=== PATIENT | male | born 1950 ===

== ENCOUNTER → 2018-01-14 06:55 | Day surgery (SDC) | payer BC ==
[~2018-01-14 06:55] MED LIST: Acetaminophen TAB* 325 MG PO PRN; Buffered Lidocaine 0.9% SYRIN* 5 ML/SYR SYRINGE INTRADERM ONE; Buffered Lidocaine 0.9% SYRIN* 5 ML/SYR SYRINGE ONE; Bupivacaine 0.5%* 50 ML VIAL ONE; Dexamethasone IV* 4 MG/ML 1 ML (4 MG) ONE; DiMENhydriNATE IV* 50 MG/ML VIAL IV PUSH PRN; EPHEDrine (Pressors)* 50 MG/ML VIAL ONE; Famotidine IV* 10 MG/ML 2 ML (20 mg) ONE; Ketorolac INJ* 30 MG/ML 1 ML VIAL ONE; Levalbuterol 0.63MG/3ML NEB* UNIT OF USE INH PRN; Lidocain 1% EPI 1:100,000 * 30 ML MDV ONE; Lidocaine 2% PF * 5 ML VIAL ONE; Midazolam* 1 MG/ML 2 ML VIAL (2 MG) ONE; Naloxone* 0.4 MG/ML 1 ML VIAL IV PRN; Ondansetron INJ* 2 MG/ML VIAL IV PRN; PROCHLORPERAZINE INJ 5 MG/ML 2 ML VIAL IV PRN; Propofol* 10 MG/ML 20 ML BTL IV PUSH ONE; ceFAZolin 2 GM PREMIX (*) 2 GM/50 ML BAG IVPB ONE; fentaNYL* 50 MCG/ML 2 ML VIAL (100 MCG VIAL) IV PRN; fentaNYL* 50 MCG/ML 2 ML VIAL (100 MCG VIAL) ONE
[2018-01-14 13:02] VITALS: BP 136/73
--- NOTE | 2018-01-15 02:06 | OP ---
CC: Dr. Granados, at [facility] * DATE OF OPERATION: 01/14/18 - [facility] DATE OF : 46 SURGEON: Antonio Whittaker MD. BOTANY LABORATORY ASSISTANT: Laura Taylor NP. ANESTHESIOLOGIST: Malachi Ramey MD. ANESTHESIA: Local with general. PRE-OP DIAGNOSES: 1. Umbilical hernia. 2. Right inguinal hernia. POST-OP DIAGNOSIS: 1. Umbilical hernia. 2. Right indirect inguinal hernia. PROCEDURE: 1. Open primary repair of umbilical hernia. 2. Open repair of right indirect inguinal hernia with mesh. WOUND CLASSIFICATION: 1. SPECIMENS: None. DRAINS: None. COMPLICATIONS: None FINDINGS: The patient had a rather small fat-containing umbilical hernia, which was closed primarily. Also noted with a large indirect inguinal hernia, which was repaired using mesh. DESCRIPTION OF PROCEDURE: Written and informed consent was obtained. The umbilicus and the right groin were marked with indelible ink and preoperative antibiotics were administered. The patient was taken to the operating room and placed in a supine position. Sequential compression device and a warming blanket were applied. General anesthesia was administered. The abdomen and right groin were prepped and draped in usual sterile fashion. Time-out verification was completed for both procedures. Initially 0.25% Marcaine mixed with 1% lidocaine was infiltrated extensively around the umbilicus. A semicircular incision was then made inferior to the umbilicus and carried down through the subcutaneous tissue to the fascia just below the umbilical stalk. I encircled the umbilical stalk subcutaneously with a 1/4-inch [place] drain. The overlying skin was excised off of what appeared to be protuberant fat that was herniating up through the fascial defect. It was only about 8 mm to 1 cm in size. The surrounding fascia appeared to be intact and healthy. The preperitoneal fat was then reduced without difficulty. It did not enter the peritoneal cavity. Once this was complete, it was apparent that this was quite a small hernia and an attempt to place mesh would be difficult as well because of its small size. I proceeded with a primary repair using three separate 0-Vicryl sutures placed in transverse orientation to repair the defect. Hemostasis was then assured. Additional Marcaine was infiltrated. The umbilical skin was tacked down to the suture line with an interrupted 3-0 Polysorb suture. The incision was then closed in layers with 3-0 Vicryl and 4-0 subcuticular Vicryl. Steri-Strips and sterile dressings were applied. Next, a repeat time-out was performed. Time-out was repeated for the right groin hernia repair. The 0.25% Marcaine with 1% lidocaine was infiltrated several fingerbreadths above the groin crease. An oblique incision was made, carried down through Yeny's fascia. The external oblique aponeurosis was identified as well as the external ring. The fascia was opened in the direction of its fibers to expose a rather large inguinal hernia extending down through the external ring. I was able to encircle the spermatic cord and its contents with a 1/4 inch Sofia drain at the pubic tubercle. It was after freeing up the cord from the underlying floor that the direct space appeared to be intact. There was no evidence of direct hernia. With some tedious dissection due to significant amount of scar tissue along the cord, we were able to identify a rather large indirect inguinal hernia sac that was quite scarred and adherent to the spermatic cord, but with careful dissection we were able to dissect this up into the neck at the internal ring, with care to protect injury to the spermatic cord including the vas deferens, which was obviously identified. As mentioned, the direct space appeared to be intact. Once the hernia had been reduced, a Covidien precut ProGrip mesh was then placed , sutured to the pubic tubercle medially with 0 Polysorb suture. I sutured in several positions to the conjoint tendons superiorly, as well as to the inguinal ligament inferiorly, but it covered the direct and indirect space nicely without tension and reconstructed the internal ring to be just adequate size to permit the spermatic cord. Additional Marcaine was infiltrated. It was evident that I had damaged the ilioinguinal nerve and this was sacrificed as it exited the musculature laterally. The iliohypogastric nerve as well in the more superior position was also sacrificed as it was quite scarred into the external oblique aponeurosis. I divided this and removed this section of the nerve. Once the mesh was in place, the external oblique aponeurosis was closed with the running 3-0 Polysorb suture. The subcutaneous tissue was closed with running 3-0 Polysorb suture. The skin was approximated with subcuticular 4-0 Polysorb suture. Steri-Strips and sterile dressings were applied. The patient tolerated the procedure well, was taken to the recovery room in stable condition. [id number]/[facility] #: [id number] LUIS ALFREDO
== END | disposition home or self-care (01) ==
LOC: OR 06:55
PROVIDERS: ATTEND Surgery
PROC: 0WQF0ZZ Repair Abdominal Wall, Open Approach (ICD-10-PCS; principal; 2018-01-14 08:45)
DX: K40.90 Unilateral inguinal hernia, without obstruction or gangrene, not specified as recurrent (principal); K42.9 Umbilical hernia without obstruction or gangrene; Z87.891 Personal history of nicotine dependence; I10 Essential (primary) hypertension; J44.9 Chronic obstructive pulmonary disease, unspecified; E53.8 Deficiency of other specified B group vitamins
CPT/HCPCS: C1781; J0690; J1100; J1885; J2250; J2704; J3010

== ENCOUNTER 2018-03-11 04:03 | Inpatient (IN) | payer BC ==
[2018-03-11] MEDS ORDERED: Metoclopramide IV* 5 MG/ML 2 ML VIAL IV SLOW PU ONE (04:23)
[2018-03-11] MEDS ORDERED: Morphine VIAL* 4 MG/ML VIAL (1 ml vial) IV ONE ×2 (04:23→05:31)
[2018-03-11] MEDS ORDERED: NS 0.9% 1000 ML* 1,000 ML IV ONE (04:24)
[2018-03-11] MEDS ORDERED: Pantoprazole IV* 40 MG IV ONE (04:28)
[2018-03-11 04:39] LABS: ABS Basophils 0.1 10^3/ul (0-0.2); ABS Eosinophils 0.2 10^3/ul (0-0.6); ABS Monocytes 0.6 10^3/ul (0-0.8); ABS Neutrophils 7.9 10^3/ul (1.5-7.7); ABS Nucleated RBC 0 10^3/ul; Hematocrit 38 % (42-52); Hemoglobin 12.7 g/dl (14.0-18.0); Mean Corpuscular HGB Conc 34 g/dl (31-36); Mean Corpuscular Hemoglobin 31 pg (27-31); Mean Corpuscular Volume 92 fL (80-94); Mean Platelet Volume 8.3 um3 (7.4-10.4); Nucleated Red Blood Cells % 0; Platelet Count 190 10^3/ul (150-450); Red Blood Count 4.12 10^6/ul (4.0-5.4); Red Cell Distribution Width 14 % (10.5-15); White Blood Count 9.7 10^3/ul (3.5-10.8)
[2018-03-11 04:47] LABS: INR 0.84 (0.77-1.02)
[2018-03-11 04:55] LABS: EGFR Non-African American 82.6 (>60)
--- NOTE | 2018-03-11 06:41 | ED ---
Saleem Townsend Rebecca, scribed for Carol Louie MD on 03/11/18 at 0415 . HPI Chest Pain - HPI Summary HPI Summary: Pt is a 67 y/o M who presents to ED c/o CP. Pain began at 0100 this morning and is located in the lower sternal/epigastric regions with no radiation. Currently pain is severe, ranked 8/10. Sx aggravated and alleviated by nothing. Additionally c/o vomiting. Had a hot dog for dinner. Has never had a stress test but had an echocardiogram done prior to his 01/14/2018 surgery. No PMHx CAD. - History of Current Complaint Chief Complaint: EDChestPainROMI Time Seen by Provider: 03/11/18 04:12 Hx Obtained From: Patient Onset/Duration: Still Present Time of Onset: 01:00 Current Severity: Severe Pain Intensity: 8 Pain Scale Used: 0-10 Numeric Chest Pain Location: Discrete at: - Lower sternal and epigastric Chest Pain Radiates: No Aggravating Factor(s): Nothing Alleviating Factor(s): Nothing Associated Signs and Symptoms: Positive: Vomiting - Allergy/Home Medications Allergies/Adverse Reactions: Allergies Allergy/AdvReac Type Severity Reaction Status Date / Time No Known Allergies Allergy Verified 01/14/18 07:09 PMH/Surg Hx/FS Hx/Imm Hx Cardiovascular History: Reports: Hx Hypertension - ON MEDICATION FOR Denies: Hx Coronary Artery Disease, Hx Pacemaker/ICD Sensory History: Denies: Hx Contacts or Glasses, Hx Hearing Aid Opthamlomology History: Denies: Hx Contacts or Glasses - Surgical History Surgery Procedure, Year, and Place: CARPAL TUNNEL RELEASE-BILATERA. REPAIR OF A TORN ROTATOR CUFF-RIGHT. CYST REMOVAL FROM SCROTUM Hx Anesthesia Reactions: No Infectious Disease History: No Infectious Disease History: Denies: Traveled Outside the [place] in Last 30 Days - Family History Known Family History: Negative: Diabetes - Social History Alcohol Use: Occasionally Substance Use Type: Reports: None Smoking Status (MU): Former Smoker Amount Used/How Often: 1 PPD X 20 YEARS Review of Systems Negative: Fever Positive: Chest Pain Positive: Vomiting All Other Systems Reviewed And Are Negative: Yes Physical Exam - Summary Physical Exam Summary: VITAL SIGNS: Reviewed. GENERAL: ~Patient is a well-developed and nourished male who is lying comfortable in the stretcher. Patient is not in any acute respiratory distress. HEAD AND FACE: No signs of trauma. No ecchymosis, hematomas or skull depressions. No sinus tenderness. EYES: PERRLA, EOMI x 2, No injected conjunctiva, no nystagmus. EARS: Hearing grossly intact. Ear canals and tympanic membranes are within normal limits. MOUTH: Oropharynx within normal limits. NECK: Supple, trachea is midline, no adenopathy, no JVD, no carotid bruit, no c- spine tenderness, neck with full ROM. CHEST: Symmetric, no tenderness at palpation LUNGS: Clear to auscultation bilaterally. No wheezing or crackles. CVS: Regular rate and rhythm, S1 and S2 present, no murmurs or gallops appreciated. ABDOMEN: Soft, epigastric and RUQ tenderness. No signs of distention. No rebound no guarding, and no masses palpated. Bowel sounds are normal. EXTREMITIES: FROM in all major joints, no edema, no cyanosis or clubbing. NEURO: Alert and oriented x 3. No acute neurological deficits. Speech is normal and follows commands. SKIN: Dry and warm Triage Information Reviewed: Yes Vital Signs On Initial Exam: Initial Vitals Temp Pulse Resp BP Pulse Ox 98.0 F 59 20 170/80 97 03/11/18 04:04 03/11/18 04:04 03/11/18 04:04 03/11/18 04:04 03/11/18 04:04 Vital Signs Reviewed: Yes Diagnostics - Vital Signs Vital Signs Temp Pulse Resp BP Pulse Ox 03/11/18 04:04 98.0 F 59 20 170/80 97 - Laboratory Result Diagrams: 03/11/18 04:30 03/11/18 04:30 Lab Statement: Any lab studies that have been ordered have been reviewed, and results considered in the medical decision making process. - Radiology CXR Xray Interpretation: No Acute Changes - Pending official report. Radiology Interpretation Completed By: ED Physician - EKG 0421 Cardiac Rate: Bradycardia - 58 bpm EKG Rhythm: Sinus Bradycardia EKG Interpretation: Nl interval. Nl axis. Nonspecific T wave changes in the inferior leads Chest Pain Course/Dx - Course Assessment/Plan: Pt is a 67 y/o M who presents to ED c/o lower sternal and epigastric pain since 99 this mornin, currently pain is severe, ranked 8/10. Additionally c/o vomiting. Had a hot dog for dinner. Has never had a stress test but had an echocardiogram done prior to his 01/14/2018 surgery. No PMHx CAD. CXR reveals no acute findings. EKG is sinus lu with nonspecific T wave changes in the inferior leads. Blood work was done with results including a troponin of 0.00, BUN/creatinine ratio of 22.0, magnesium of 1.8 and Hgb of 12.7. In the ED course, pt recevied reglan, protonix, morphine and fluids. He will be signed out to Dr. Ramirez, pending dispo, awaiting US. - Diagnoses Provider Diagnoses: Biliary colic Discharge - Sign-Out/Discharge Documenting (check all that apply): Sign-Out Patient Signing out patient TO: Ector Ramirez - Discharge Plan Referrals: Sendy Granados MD [Primary Care Provider] - The documentation as recorded by the Saleem su Rebecca accurately reflects the service I personally performed and the decisions made by , Carol Louie MD.
--- NOTE | 2018-03-11 08:13 | RAD ---
HISTORY: CP, chest pain COMPARISONS: None VIEWS: 1: frontal portable view of the chest at 4:46 AM FINDINGS: LINES AND TUBES: None. CARDIOMEDIASTINAL SILHOUETTE: The cardiomediastinal silhouette is normal for portable technique. PLEURA: The costophrenic angles are sharp. No pleural abnormalities are noted. LUNG PARENCHYMA: The lungs are clear. ABDOMEN: The upper abdomen is clear. There is no subphrenic gas. BONES AND SOFT TISSUES: Degenerative changes are noted. IMPRESSION: NO ACTIVE CARDIOPULMONARY DISEASE.
--- NOTE | 2018-03-11 08:20 | RAD ---
HISTORY: Abd pain, abdominal pain COMPARISONS: None TECHNIQUE: Multiple transverse and longitudinal ultrasound images were obtained of the right upper quadrant of the abdomen using grayscale and color Doppler imaging. FINDINGS: LIVER: The liver is normal in shape, size, contour, and echogenicity. There are no focal parenchymal masses. There is normal hepatopedal flow of the portal vein on Doppler imaging. BILIARY TREE: The common duct is mildly ectatic. There is no intrahepatic biliary dilatation. The common duct measures 0.8 cm. GALLBLADDER: The gallbladder is distended. Multiple shadowing echogenic foci consistent with gallstones are noted. There is no gallbladder wall thickening, pericholecystic fluid, or sonographic Rodriguez sign. PANCREAS: The head of the pancreas is unremarkable. The tail of the pancreas is not well visualized secondary to overlying bowel gas. RIGHT KIDNEY: The right kidney is normal in shape, size, contour, and echogenicity. There is no hydronephrosis or nephrolithiasis. The right kidney measures 12.3 x 5.6 x 5.4 cm. AORTA AND IVC: The aorta and IVC are unremarkable. FLUID: There are no pleural effusions. There is no free fluid within the hepatorenal recess. OTHER FINDINGS: None. IMPRESSION: CHOLELITHIASIS WITH MILD DILATATION OF THE COMMON DUCT.
[2018-03-11] MEDS ORDERED: Nitroglycerin TAB 0.4 MG* 0.4 MG TAB SL ONE (08:58)
[2018-03-11] MEDS ORDERED: Magnesium Sulfate 2 GM IV* 2 GM/50 ML BAG IVPB ONE (09:53)
[2018-03-11] MEDS ORDERED: Albuterol HFA INHALER* 8 gm MDI INH PRN (09:54)
[2018-03-11] MEDS ORDERED: Ondansetron 40 MG VIAL* 2 MG/ML 20 ML VIAL IV PRN (09:55)
[2018-03-11] MEDS ORDERED: NS 0.9% 1000 ML* 1,000 ML IV SCH (10:00)
[2018-03-11] MEDS ORDERED: LORazepam TAB(*) 1 MG PO SCH (12:00)
[2018-03-11] MEDS: Albuterol/Ipratropium NEB.SOL* Albuterol 2.5 MG/Ipratropium 0.5 MG 3 ML INH PRN (12:20)
[2018-03-11] MEDS: Thiamine TAB* 100 MG TAB PO SCH (12:28)
[2018-03-11] MEDS: amLODIPine TAB* 5 MG PO SCH (12:29)
[2018-03-11] MEDS: Lisinopril TAB* 10 MG PO SCH (12:29)
[2018-03-11] MEDS: Folic Acid TAB* 1 MG PO SCH (12:30)
--- NOTE | 2018-03-11 12:39 | HP ---
CC: Dr. Sendy Granados * HISTORY AND PHYSICAL: DATE OF ADMISSION: 03/11/18. PRIMARY CARE PROVIDER: Dr. Sendy Granados. ATTENDING PHYSICIAN: Dr. Juanita Mccracken * (dictated by Nancy Glaser NP) CHIEF COMPLAINT: Lower sternal, epigastric pain and right upper quadrant pain. HISTORY OF PRESENT ILLNESS: Mr. Phillips is a 67-year-old male with a past medical history significant for hypertension and COPD, who states that he was in his usual state of health yesterday and he ate a hamburger and hotdogs for dinner. He states that at 1 a.m., he developed a localized lower sternal epigastric pain with no radiation that he describes as a pressure. He found that nothing relieved this or aggravated it. He denies any fevers. He reports chills, that have since have resolved. He denies any cough. He has shortness of breath which is at his baseline. He denies nausea, but had some vomiting. He reports occasional cough, which is his baseline due to his COPD and he reports a right upper quadrant discomfort. He denies any urinary symptoms, lightheadedness, dysuria, diaphoresis. Due to his symptoms, he presented to the emergency room for further evaluation. While in the emergency room, the patient received Reglan, morphine, Protonix, a liter of saline. He had an EKG showing sinus lu with some nonspecific ST changes, but no ischemia. There were no previous EKGs for comparison. He had labs. He was found to be mildly anemic, but has no previous in our system for comparison. His magnesium was low. He had a troponin that was 0.00. He had a chest x-ray without any acute findings because of his complaint of a right upper quadrant pain, he had an abdominal ultrasound showing cholelithiasis with mild dilatation of common duct. His LFTs were within normal limits. He had a repeat troponin that was 0.00. A repeat EKG showing sinus rhythm. No acute signs of ischemia, similar to the previous one from earlier in the morning. Due to his symptoms, the hospitalist were asked to evaluate him for admission. PAST MEDICAL HISTORY: 1. Hypertension. 2. COPD. PAST SURGICAL HISTORY: 1. Status post bilateral carpal tunnel release. 2. Status post right rotator cuff repair. 3. Status post excision of a cyst from his scrotum. 4. Status post umbilical and right inguinal hernia repair. HOME MEDICATIONS: Includes: 1. Estradiol 2 mg sublingual twice daily. 2. Amlodipine 2.5 mg oral daily. 3. Spiriva 1 inhalation every morning. 4. Metoprolol tartrate 25 mg oral twice daily. 5. Lisinopril 40 mg oral daily. 6. Hydrochlorothiazide 25 mg oral daily. 7. Finasteride 5 mg oral daily. 8. Symbicort 160/4.5 two puffs inhalation twice daily. ALLERGIES: No known drug allergies. FAMILY HISTORY: The patient denies any family history of coronary artery disease, diabetes mellitus, or cancer. SOCIAL HISTORY: The patient is a former smoker, quitting approximately 18 years ago. Prior to that, he had 1 to 2 pack a day smoking history of 20 years. He drinks 4 beers daily. Denies recreational drug use. His Ayla Phillips will be his surrogate decision maker in the event he is unable to make a decision for himself. REVIEW OF SYSTEMS: I performed an 11-point review of systems. All the pertinent positives and negatives are mentioned in the history of present illness. The remaining review of systems are negative. PHYSICAL EXAMINATION GENERAL APPEARANCE: The patient is alert, pleasant, appears to be in no acute distress. VITAL SIGNS: Temperature 98.0, heart rate 74, respiratory rate 16, O2 sat 92% on room air, blood pressure 137/82. HEENT: Normocephalic, atraumatic. Pupils are equal and reactive to light. Extraocular movements are intact. RESPIRATORY: There is no accessory muscle use. The lungs are clear to auscultation bilaterally. CARDIOVASCULAR: Regular rate and rhythm. S1 and S2 present. There are no murmurs, rubs, or gallops heard. ABDOMEN: Soft, large with tenderness to palpation to the right upper quadrant. Bowel sounds are hypoactive x4. . EXTREMITIES: There is no lower extremity edema. DP and PT pulses are 2+ and symmetric. MUSCULOSKELETAL: There is no clubbing or cyanosis noted. The patient exhibits good strength in all extremities. NEUROLOGICAL: The patient is alert and oriented x4. Cranial nerves II through XII are grossly intact. PSYCHOLOGICAL: The patient is calm and cooperative. SKIN: There are no rashes or abnormalities seen. DIAGNOSTIC STUDIES/LABORATORY DATA: Sodium 137, potassium 4.0, chloride 103, CO2 28, BUN 20, creatinine 0.91, glucose 135. Magnesium 1.8. White blood cell count 9.7, hemoglobin 12.7, hematocrit 38, and platelet count 190. Troponin 0.00 x2. LFTs within normal limits. ] EKG from 01/19 shows a sinus lu with a rate of 58, some nonspecific ST changes, but no acute signs of ischemia. There is no previous EKG for comparison. Repeat EKG at 0900 today shows sinus rhythm with a rate of 72, and similar to previous from earlier this morning. Chest x-rays from today, radiologist impression: No active cardiopulmonary disease. Abdominal ultrasound from today: Radiologist impression of cholelithiasis with mild dilatation of common duct. IMPRESSION: Mr. Phillips is an 67-year-old male with a past medical history significant for hypertension and chronic obstructive pulmonary disease, who presents to the emergency room with complaints of lower sternal epigastric pressure and right upper quadrant pain. He will be admitted under observation for chest pain and right upper quadrant pain. ASSESSMENT AND PLAN: 1. Chest pain. The patient has a DON score of 2. His initial two troponins are 0.00. He has no signs of ischemia on his EKG. We will check one more troponin and check fasting lipids in the morning. Based on the MRCP results, I will consider doing a stress test in the morning, but for now I am going to hold until the MRCP is completed as I suspect his chest discomfort is related to his gallbladder. 2. Right upper quadrant pain. The patient's abdominal ultrasound shows cholelithiasis with a mild dilation of the common duct. Due to his significant right upper quadrant discomfort with palpation, I am going to get an MRCP. His LFTs are within normal range and I will recheck them in the morning. For now, he will be n.p.o. until after his MRCP. Based on the findings of the MRCP I will consider asking general surgery to consult on the patient. 3. Anemia. There are no signs of bleeding at this time and the patient denies any bleeding. We will recheck labs in the morning. 4. Alcohol abuse. The patient reports drinking 4 [address] will [address] him on the [facility] protocol. 5. Hypertension. The patient is currently normotensive. He will be continued on his home metoprolol and lisinopril and amlodipine. I am going to hold his hydrochlorothiazide while I give him some IV fluids. His hydrochlorothiazide can likely to be restarted in the morning. 6. Benign prostatic hyperplasia. The patient will be continued on his home finasteride. 7. Chronic obstructive pulmonary disease. The patient has no signs of chronic obstructive pulmonary disease exacerbation at this time. I am going to continue him on his home Symbicort or hospital other substitute, Spiriva, and as needed albuterol. 8. Fluids, electrolytes, and nutrition. The patient will be n.p.o. until after his MRCP. We will give normal saline at 100 mL an hour. 9. Code status: Full code. 10. DVT prophylaxis: He is a high risk, we will give subcu heparin. 11. Disposition: Observation. TIME SPENT: Time for this admission was approximately 60 minutes, greater than half of that was spent with the patient and his family discussing medications, past medical history, the events leading up to his arrival today, performing a physical examination. The case has been reviewed with the attending, Dr. Mccracken, who agrees with the plan of care. Reviewed by JAMIE AKHTAR 03/14/18 1029 [id number]/[facility] #: [id number] LUIS ALFREDO
[2018-03-11] MEDS: Heparin VIAL(*) 5000 UNITS/ML VIAL (FIVE THOUSAND) SUBCUT SCH ×2 (14:21→21:28)
--- NOTE | 2018-03-11 15:52 | RAD ---
Indication: Chest/epigastric lower sternal region pain. Cholelithiasis and mild common bile duct dilatation on ultrasound. Comparison: RIGHT upper quadrant ultrasound of the same date. Technique: Noncontrast magnetic resonance cholangiopancreatography. Report: Distended gallbladder with mild pericholecystic fluid. No compelling gallbladder wall thickening. A few 0.7 cm maximum dimension stones are visualized at the gallbladder neck. The more distal stone appears impacted at the gallbladder neck. The common bile duct is top normal in diameter measuring up to 0.7 cm. No stones visualized in the common bile duct. Variant pancreatic divisum morphology with the main pancreatic duct extending to a papilla anterior and cephalad to the papilla draining the common bile duct. Upper normal pancreatic duct diameter of 0.25 cm. Negative for findings of acute pancreatic inflammation or focal pancreatic lesion. Negative for intrahepatic biliary dilatation. Small volume of perihepatic ascites. IMPRESSION: 1. Negative for biliary dilatation or presence of a common bile duct stone. 2. Variant pancreatic divisum morphology. 3. 0.7 cm impacted appearing stone at the gallbladder neck with gallbladder distention and pericholecystic fluid suspicious for acute cholecystitis. Results discussed with nurse Michelle 03/11/2018 3:48 PM EDT
[2018-03-11] MEDS ORDERED: NS 0.9% 500 ML* 500 ML IV ONE (16:10)
[2018-03-11] MEDS ORDERED: Piperacillin/Tazobac ADVAN(*) 3.375 GM in NS 0.9% 100 ML* 100 ML IVPB ONE (16:20)
[2018-03-11] MEDS: Morphine VIAL* 4 MG/ML VIAL (1 ml vial) IV PRN ×2 (16:47→21:28)
[2018-03-11] MEDS ORDERED: Zosyn per Pharmacy* NOTE FOLLOW UP SCH (17:00)
[2018-03-11] MEDS: NS 0.9% 1000 ML* 1,000 ML IV SCH ×2 (17:18→23:26)
--- NOTE | 2018-03-11 18:51 | ED ---
Shabbir Townsend Angela, scribed for Ector Ramirez MD on 03/11/18 at 0712 . Progress - Progress Note Progress Note: This pt was signed out by Dr. Louie, pending disposition, awaiting abdomen US. Abdomen US, as read by radiologist IMPRESSION: Cholelithiasis with mild dilatation of the common duct. Dr. Ramirez has reviewed this radiology report. EKG at 09:00 Rate: Normal at 72 bpm Rhythm: Normal sinus No STEMI. Re-Evaluation - Re-Evaluation First Eval Re-Evaluation Time: 08:55 Change: Unchanged Comment: I reviewed the US results with the pt. Pt is still c/o substernal chest pressure, rated 3/10 in severity. He also has RUQ tenderness. Course/Dx - Course Course Of Treatment: This pt was signed out by Dr. Louie, pending disposition, awaiting abdomen US. Ultrasound shows cholelithiasis with mild dilatation of the common duct. Test results without any significant abnormalities except for hemoglobin of 12.7, hematocrit of 38, glucose of 135. Two troponins are both 0.00. On re-evaluation, pt is still c/o substernal chest pressure, which he rate 3/10 in severity. He also has RUQ tenderness. I discussed pt care with Dr. Mccracken, hospitalist, who accepted the pt for admission. - Diagnoses Provider Diagnoses: Gallstones, Substernal chest pain - Provider Notifications Discussed Care Of Patient With: Juanita Mccracken Time Discussed With Above Provider: 09:13 Instructed by Provider To: Other - I discussed pt care with Dr. Mccracken, hospitalist, who accepted the pt for admission. Discharge - Sign-Out/Discharge Documenting (check all that apply): Discharge/Admit/Transfer - Admit, Receiving Sign-Out Receiving patient FROM: Carol Louie - Discharge Plan Condition: Stable Disposition: ADMITTED TO [facility] Referrals: Sendy Granados MD [Primary Care Provider] - The documentation as recorded by the Shabbir su Angela accurately reflects the service I personally performed and the decisions made by me, Ector Ramirez MD.
[2018-03-11] MEDS: Acetaminophen TAB* 325 MG PO PRN (19:39)
[2018-03-11] MEDS: Mometasone/Formoter 200/5 MDI INH SCH (20:16)
[2018-03-11] MEDS ORDERED: NS 0.9% 100 ML* 0 ML ONE (21:21)
[2018-03-11] MEDS: Metoprolol Tartrate TAB* 25 MG PO SCH (21:31)
[2018-03-11] MEDS: Dexamethasone TAB* 4 MG PO SCH (21:32)
[2018-03-11] MEDS: ZOSYN 3.375 GM Q8H per EXTENDED INFUSION IVPB SCH ×2 (21:33)
--- NOTE | 2018-03-11 22:30 | CONS ---
CC: [facility]; Dr. Granados, [facility] * CONSULTATION REPORT: DATE OF CONSULT: 03/11/18 REFERRING PROVIDER: Nancy Duncan NP, hospitalist. REASON FOR CONSULT.: Right upper quadrant abdominal pain and gallstones. HISTORY OF PRESENT ILLNESS: Mr. Janes Phillips is a 67-year-old gentleman who was in his usual state of good health and had a meal of hamburger and hot dogs last night and went to bed. He was awoken at 1 o'clock with severe epigastric and right upper quadrant abdominal pain somewhat radiating to his back. This was associated with nausea without vomiting. He had no true chest pain or shortness of breath. This persisted through the next several hours and he presented to the emergency room. He complained of no shortness of breath. He has some obstructive lung disease, but noted no change in his symptoms from this standpoint. While in the emergency room, his EKG and cardiac workup returned unremarkable. He was noted to be afebrile. He had normal white blood cell count as well as a normal troponin level. His liver transaminases and total bilirubin were normal along with a normal lipase. He underwent an ultrasound of his right upper quadrant this morning, which shows a normal gallbladder wall thickness. There was cholelithiasis and stones in the neck of the gallbladder, but no gallbladder wall thickening or pericholecystic fluid. The common bile duct measured about 8 mm. Hospitalist service went ahead and ordered an MRCP. This showed no evidence of choledocholithiasis or biliary dilatation. There was a distended gallbladder with mild pericholecystic fluid, but no compelling gallbladder wall thickening. There was a 7 mm gallstone that appeared to be impacted in the gallbladder neck and findings were felt consistent with acute cholecystitis. He has been admitted to hospitalist service and surgical consultation was obtained. PAST MEDICAL HISTORY: 1. Chronic obstructive pulmonary disease. 2. Hypertension. PAST SURGICAL HISTORY: 1. Primary umbilical hernia repair and right inguinal hernia repair with mesh, December 2017, here [place] [facility] [place] 2. Bilateral carpal tunnel release. 3. Right rotator cuff repair. 4. Scrotal cyst excision. MEDICATIONS: Include: 1. Estradiol 2 mg sublingual twice daily. 2. Amlodipine 2.5 mg orally daily. 3. Spiriva 1 inhalation every morning. 4. Metoprolol tartrate 25 mg b.i.d. 5. Lisinopril 40 mg daily. 6. Hydrochlorothiazide 25 mg daily. 7. Finasteride 5 mg daily. 8. Symbicort 160/4.5 two puffs inhalation twice daily. ALLERGIES: He has no known drug allergies. SOCIAL HISTORY: He is retired. He is a former smoker, quitting about 20 years ago. He smoked about a pack or two a day for about 20 years. He occasionally drinks alcohol. He is retired and lives with his , Ayla Phillips, who is his surrogate decision maker. PHYSICAL EXAM: Temperature 100.7, pulse 94, blood pressure 150/72. In general , he is a well developed, well nourished older man, who appears to be in no apparent distress, although he is somewhat fatigued. HEENT: Sclera anicteric. Oral mucosa is slightly dry. Lungs are clear to auscultation with normal respiratory effort. Diminished breath sounds at the bases. Heart was regular rate and rhythm without murmurs, rubs or gallops. The abdomen is soft and slightly distended. He had normoactive bowel sounds throughout. He has a well- healed umbilical incision as well as a right lower groin incision without recurrent hernia or signs of infection or seroma. He has tenderness in the right upper quadrant with some voluntary guarding. There is no generalized peritoneal irritation. Psychiatric: He is awake, alert and oriented x3. He has normal judgment and insight. DIAGNOSTIC STUDIES/LAB DATA: Laboratory values, as mentioned above, were reviewed and normal chemistry labs, and white blood cell count were all unremarkable. He had an INR of 0.84. I did review the ultrasound as well as the MRCP done today. IMPRESSION: 1. Acute calculous cholecystitis. He has not had symptoms of gallbladder disease in the past. This is a rather sudden onset of discomfort. He appears to have a gallstone wedged in the neck of the gallbladder which will be consistent with his symptoms and the rather rapid development of cholecystitis. He had a normal white blood cell count. He has developed a low-grade fever here on the floor, but had not been started on IV antibiotics until just this afternoon after the MRCP had been performed. 2. Hypertension. 3. Obstructive lung disease, stable. 4. Cardiac. Cardiac workup so far has been unremarkable and symptoms are not felt to be due to cardiac etiology. I discussed this with the hospitalist, Ms. Singh, and felt that he is an acceptable surgical risk from a cardiopulmonary standpoint at this point. PLAN: I recommend we proceed with a laparoscopic cholecystectomy tomorrow. He has been started on IV antibiotics this evening and we will keep him n.p.o. after midnight. He will continue IV fluids. I discussed the procedure with him and the risks, but not limited to bleeding, infection, intraabdominal abscess formation, injury to peritoneal and retroperitoneal structures, common bile duct injury requiring further reconstruction, possibility of an open procedure, the risk of anesthesia and postoperative recovery time were all explained. There may be operating room time available around noon tomorrow for laparoscopic cholecystectomy and we will proceed accordingly. [id number]/[facility] #: [id number] LUIS ALFREDO
[2018-03-12] MEDS: Morphine VIAL* 4 MG/ML VIAL (1 ml vial) IV PRN ×3 (02:31→17:11)
[2018-03-12] MEDS: Heparin VIAL(*) 5000 UNITS/ML VIAL (FIVE THOUSAND) SUBCUT SCH (05:29)
[2018-03-12] MEDS: ZOSYN 3.375 GM Q8H per EXTENDED INFUSION IVPB SCH ×4 (05:29→17:30)
[2018-03-12 06:07] LABS: ABS Basophils 0 10^3/ul (0-0.2); ABS Eosinophils 0 10^3/ul (0-0.6); ABS Lymphocytes 0.5 10^3/ul (1.0-4.8); ABS Monocytes 0.7 10^3/ul (0-0.8); ABS Neutrophils 19.6 10^3/ul (1.5-7.7); ABS Nucleated RBC 0 10^3/ul; Eosinophil % 0 % (0-6); Hematocrit 40 % (42-52); Lymphocyte % 2.6 % (25-47); Mean Corpuscular HGB Conc 33 g/dl (31-36); Mean Corpuscular Hemoglobin 31 pg (27-31); Mean Corpuscular Volume 93 fL (80-94); Mean Platelet Volume 8.4 um3 (7.4-10.4); Nucleated Red Blood Cells % 0; Platelet Count 190 10^3/ul (150-450); Red Blood Count 4.27 10^6/ul (4.00-5.40); Red Cell Distribution Width 14 % (10.5-15); White Blood Count 20.9 10^3/ul (3.5-10.8)
[2018-03-12 06:27] LABS: EGFR Non-African American 85.9 (>60)
[2018-03-12] MEDS: amLODIPine TAB* 5 MG PO SCH (07:56)
[2018-03-12] MEDS: Dexamethasone TAB* 4 MG PO SCH (07:56)
[2018-03-12] MEDS: Lisinopril TAB* 10 MG PO SCH (07:56)
[2018-03-12] MEDS: Metoprolol Tartrate TAB* 25 MG PO SCH ×2 (07:56→20:29)
[2018-03-12] MEDS: Finasteride TAB* 5 MG PO SCH (07:56)
[2018-03-12] MEDS ORDERED: Famotidine IV* 10 MG/ML 2 ML (20 mg) IV ONE (08:00)
[2018-03-12] MEDS: Folic Acid TAB* 1 MG PO SCH (08:01)
[2018-03-12] MEDS: Thiamine TAB* 100 MG TAB PO SCH (08:01)
[2018-03-12] MEDS: Multivitamins/Minerals TAB PO SCH (08:01)
[2018-03-12] MEDS: Tiotropium CAP.INH* CAP.INH/18 MCG (USE ORDER SET !) INH SCH (08:13)
[2018-03-12] MEDS: Mometasone/Formoter 200/5 MDI INH SCH ×2 (08:14→20:11)
--- NOTE | 2018-03-12 08:20 | PN ---
Progress Note - Progress Note Date of Service: 03/12/18 SOAP: Subjective: Pain in RUQ about the same No N/V, SOB or CP Objective: Tmax 101.5 Temp Pulse Resp BP Pulse Ox 97.7 F 76 16 137/69 94 03/12/18 07:35 03/12/18 07:35 03/12/18 07:35 03/12/18 07:35 03/12/18 07:35 Intake & Output 03/10/18 03/11/18 03/12/18 03/13/18 06:59 06:59 06:59 06:59 Intake Total 1098 Output Total 550 Balance 548 Weight 175 lb 175 lb Intake: IV Fluids 998 Oral 100 Output: Urine 550 Other: # Bowel Movements 0 PEX: Comfortable Lungs are clear Abd is soft and slightly distended. Bowel sounds are present. There is tenderness with some voluntary guarding in the RUQ-no peritoneal irritation. Laboratory Results - last 24 hr 03/11/18 03/11/18 03/12/18 08:29 11:18 05:45 WBC 20.9 H RBC 4.27 Hgb 13.0 L Hct 40 L MCV 93 MCH 31 MCHC 33 RDW 14 Plt Count 190 MPV 8.4 Neut % (Auto) 93.8 H Lymph % (Auto) 2.6 L Gladwin % (Auto) 3.4 Eos % (Auto) 0 Baso % (Auto) 0.2 Absolute Neuts (auto) 19.6 H Absolute Lymphs (auto) 0.5 L Absolute Monos (auto) 0.7 Absolute Eos (auto) 0 Absolute Basos (auto) 0 Absolute Nucleated RBC 0 Nucleated RBC % 0 Sodium Potassium Chloride Carbon Dioxide Anion Gap BUN Creatinine Est GFR ( Amer) Est GFR (Non-Af Amer) BUN/Creatinine Ratio Glucose Calcium Magnesium Total Bilirubin AST ALT Alkaline Phosphatase Troponin I 0.00 0.00 Total Protein Albumin Globulin Albumin/Globulin Ratio Triglycerides Cholesterol LDL Cholesterol HDL Cholesterol 03/12/18 05:45 WBC RBC Hgb Hct MCV MCH MCHC RDW Plt Count MPV Neut % (Auto) Lymph % (Auto) Gladwin % (Auto) Eos % (Auto) Baso % (Auto) Absolute Neuts (auto) Absolute Lymphs (auto) Absolute Monos (auto) Absolute Eos (auto) Absolute Basos (auto) Absolute Nucleated RBC Nucleated RBC % Sodium 136 L Potassium 4.4 Chloride 106 Carbon Dioxide 25 Anion Gap 5 BUN 19 Creatinine 0.88 Est GFR ( Amer) 110.4 Est GFR (Non-Af Amer) 85.9 BUN/Creatinine Ratio 21.6 H Glucose 144 H Calcium 8.1 L Magnesium 2.2 Total Bilirubin 1.00 AST 105 H ALT 99 H Alkaline Phosphatase 110 H Troponin I Total Protein 6.5 Albumin 3.4 Globulin 3.1 Albumin/Globulin Ratio 1.1 Triglycerides 79 Cholesterol 131 LDL Cholesterol 52 HDL Cholesterol 63.2 Assessment: Acute calculous cholecystitis Leukocytosis Fever-resolved Plan: Laparoscopic cholecystectomy today. The procedure was discussed with the patient and the risks of, but not limited to, of bleeding, infection, abscess, bile duct injury, bile leak, open procedure, injury to peritoneal and retroperitoneal structures, anesthesia, blood clots were all discussed. Will proceed to OR later this morning.
[2018-03-12] MEDS ORDERED: Buffered Lidocaine 0.9% SYRIN* 5 ML/SYR SYRINGE INTRADERM ONE (08:31)
[2018-03-12] MEDS ORDERED: Ondansetron INJ* 2 MG/ML VIAL ONE (08:31)
[2018-03-12] MEDS: Albuterol/Ipratropium NEB.SOL* Albuterol 2.5 MG/Ipratropium 0.5 MG 3 ML INH PRN (08:37)
[2018-03-12] MEDS ORDERED: Lisinopril TAB* 10 MG PO SCH (09:00)
[2018-03-12] MEDS ORDERED: Spiriva Inhaler DEVICE* 1 EACH DEVICE INH ONE (09:00)
[2018-03-12] MEDS ORDERED: amLODIPine TAB* 5 MG PO SCH (09:00)
[2018-03-12] MEDS ORDERED: Atracurium* 10 MG/ML 10 ML VIAL ONE (09:12)
[2018-03-12] MEDS ORDERED: fentaNYL* 50 MCG/ML 2 ML VIAL (100 MCG VIAL) ONE (09:12)
[2018-03-12] MEDS ORDERED: Midazolam* 1 MG/ML 5 ML VIAL (5 MG) ONE (09:12)
--- NOTE | 2018-03-12 09:29 | PN ---
Subjective Date of Service: 03/12/18 Interval History: HOSPITALIST PROGRESS NOTE Patient seen and examined at bedside. Care reviewed and d/w Libra Sandhu RN. He feels a little better today, but still has RUQ pain. Denies N/V. Family History: Unchanged from Admission Social History: Unchanged from Admission Past Medical History: Unchanged from Admission Objective Active Medications: Acetaminophen (Tylenol Tab*) 650 mg PO Q6H PRN PRN Reason: FEVER/PAIN Last Admin: 03/11/18 19:39 Dose: 650 mg Albuterol (Ventolin Hfa Inhaler*) 2 puff INH Q4HR PRN PRN Reason: SOB/WHEEZING Albuterol/Ipratropium (Duoneb (Albuterol 2.5 Mg/Ipratropium 0.5 Mg)) 1 neb INH Q6H PRN PRN Reason: SOB/WHEEZING Last Admin: 03/12/18 08:37 Dose: 1 neb Amlodipine Besylate (Norvasc Tab*) 2.5 mg PO DAILY [facility] Last Admin: 03/12/18 07:56 Dose: 2.5 mg Dexamethasone (Decadron Tab*) 8 mg PO BID [facility] Stop: 03/12/18 12:00 Last Admin: 03/12/18 07:56 Dose: 8 mg Finasteride (Proscar Tab*) 5 mg PO DAILY [facility] Last Admin: 03/12/18 07:56 Dose: 5 mg Folic Acid (Folvite Tab*) 1 mg PO DAILY [facility] Last Admin: 03/12/18 08:01 Dose: Not Given Heparin Sodium (Porcine) (Heparin Vial(*)) 5,000 units SUBCUT Q8HR [facility] Last Admin: 03/12/18 05:29 Dose: 5,000 units Piperacillin Sod/Tazobactam (Sod 3.375 gm/ Sodium Chloride) 100 mls @ 25 mls/ hr IVPB Q8H [facility] Last Admin: 03/12/18 05:29 Dose: 25 mls/hr Sodium Chloride (Ns 0.9% 1000 Ml*) 1,000 mls @ 125 mls/hr IV PER RATE [facility] Last Admin: 03/11/18 23:26 Dose: 125 mls/hr Lactated Ringer's (Lactated Ringers 1000 Ml Bag*) 1,000 mls @ 125 mls/hr IV PER RATE [facility] Lidocaine/Sodium Bicarbonate (Buffered Lidocaine 0.9% Syrin*) 0.2 ml INTRADERM ONCE ONE Stop: 03/12/18 08:32 Lisinopril (Prinivil Tab*) 40 mg PO DAILY [facility] Last Admin: 03/12/18 07:56 Dose: 40 mg Lorazepam (Ativan Tab(*)) 0 - 6 mg PO .PER [facility] PROTOCOL [facility] PRN Reason: Protocol Metoprolol Tartrate (Lopressor Tab*) 25 mg PO BID [facility] Last Admin: 03/12/18 07:56 Dose: 25 mg Mometasone Furoate/Formoterol Fumar (Dulera 200/5 Mdi*) 2 puff INH BID [facility] PRN Reason: Protocol Last Admin: 03/12/18 08:14 Dose: 2 puff Morphine Sulfate (Morphine Vial*) 2 mg IV Q4H PRN PRN Reason: PAIN - MODERATE TO SEVERE Last Admin: 03/12/18 02:31 Dose: 2 mg Multivitamins/Minerals (Theragran/Minerals Tab*) 1 tab PO DAILY [facility] Last Admin: 03/12/18 08:01 Dose: Not Given Ondansetron HCl (Zofran 40 Mg Vial*) 4 mg IV Q6H PRN PRN Reason: NAUSEA Last Admin: 03/11/18 14:53 Dose: 4 mg Ondansetron HCl (Zofran Inj*) 4 mg .SEE ORDER ONCE ONE Stop: 03/12/18 08:32 Pharmacy Consult (Zosyn Per Pharmacy*) 1 note FOLLOW UP .ZOSYN PER PHARMACY [facility] Thiamine HCl (Vitamin B-1 Tab*) 100 mg PO DAILY [facility] Last Admin: 03/12/18 08:01 Dose: Not Given Tiotropium Jensen (Spiriva Cap.Inh*) 1 cap INH QAM [facility] Last Admin: 03/12/18 08:13 Dose: 1 cap Vital Signs - 8 hr 03/12/18 03/12/18 03/12/18 01:37 02:31 03:08 Temperature Pulse Rate 69 71 Respiratory 20 18 20 Rate Blood Pressure 131/74 130/72 (mmHg) O2 Sat by Pulse 94 95 Oximetry 03/12/18 03/12/18 03/12/18 05:07 05:13 07:35 Temperature 98.0 F 97.7 F Pulse Rate 70 76 Respiratory 20 18 16 Rate Blood Pressure 131/68 137/69 (mmHg) O2 Sat by Pulse 95 94 Oximetry 03/12/18 03/12/18 08:39 09:08 Temperature 97.4 F Pulse Rate 68 72 Respiratory 14 17 Rate Blood Pressure 127/68 (mmHg) O2 Sat by Pulse 94 Oximetry Oxygen Devices in Use Now: Nasal Cannula - 2 liters Appearance: Pleasant gentleman lying in bed in NAD. Eyes: No Scleral Icterus Ears/Nose/Mouth/Throat: Mucous Membranes Moist Neck: Trachea Midline Respiratory: Symmetrical Chest Expansion and Respiratory Effort, Clear to Auscultation Cardiovascular: NL Sounds; No Murmurs; No JVD, RRR Abdominal: - - Soft, RUQ tenderness, NG, NR, BS+ Extremities: No Edema Neurological: Alert and Oriented x 3, NL Muscle Strength and Tone Result Diagrams: 03/12/18 05:45 03/12/18 05:45 Assess/Plan/Problems-Billing Assessment: Mr. Phillips is a 67yo M with PMH of COPD, HTN, who presented to ED with c/o epigastric/RUQ pain, found to have acute cholecystitis. - Patient Problems (1) Sepsis Comment: - Presentation compatible with sepsis with fever and leukocytosis. - Source is acute cholecystitis. (2) Acute cholecystitis due to biliary calculus Comment: - US showed cholelithiasis and MRCP revealed no CBD stone but 0.7cm impacted stone at the GB neck with GB distention and pericholecystic fluid suggestive of acute cholecystitis. - Patient has no c/o chest pain on exertion, can walk long distances and go upstairs with no issues, no HU or palpitations. - EKG showed NSR at 72bpm with no ischemic changes. - RCRI is 0 predicting a 0.4% risk of cardiac complications. - Patient is medically optimized for proposed procedure. - Continue Zosyn. (3) COPD (chronic obstructive pulmonary disease) Comment: - Stable. - Continue bronchodilators. (4) HTN (hypertension) Current Visit: Yes Status: Acute Code(s): I10 - ESSENTIAL (PRIMARY) HYPERTENSION SNOMED Code(s): 90219499 Comment: - Controlled. - Continue Amlodipine, Metoprolol, and Lisinopril. (5) DVT prophylaxis Comment: - SQ heparin on hold for procedure. (6) Full code status
[2018-03-12] MEDS ORDERED: Dexamethasone TAB* 4 MG ONE (10:45)
[2018-03-12] MEDS ORDERED: Ondansetron ODT TAB* 4 MG ONE (10:45)
[2018-03-12] MEDS ORDERED: Famotidine IV* 10 MG/ML 2 ML (20 mg) ONE (10:46)
[2018-03-12] MEDS ORDERED: Bupivacaine 0.25% SDV* 30 ML ONE (11:02)
[2018-03-12] MEDS ORDERED: KETAMINE HCL* 50 MG/ML 10 ML VIAL ONE (11:59)
[2018-03-12] MEDS ORDERED: Glycopyrrolate IV* 0.2 MG/ML 1 ML VIAL ONE (12:35)
[2018-03-12] MEDS ORDERED: Neostigmine Methylsulfate* 2 MG/2 ML SYRINGE ONE (12:35)
[2018-03-12] MEDS ORDERED: Propofol* 10 MG/ML 20 ML BTL IV PUSH ONE (12:35)
[2018-03-12] MEDS ORDERED: Phenylephrine INJ* 10 MG/ML 1 ML VIAL (10 MG) ONE (12:35)
[2018-03-12] MEDS ORDERED: Lidocaine 2% PF * 5 ML VIAL ONE (12:35)
[2018-03-12] MEDS ORDERED: Morphine INJ* 10 MG/ML 1 ML CARPUJECT ONE (12:36)
[2018-03-12] MEDS ORDERED: Flumazenil* 0.1 MG/ML 5 ML MDV ONE (13:44)
--- NOTE | 2018-03-12 13:58 | BRIEFOPN ---
Brief Operative Note - Surgery Procedures: Procedures REPAIR ABDOMINAL WALL, OPEN APPROACH (01/14/18) OPERATIVE REPORT PRE-OP: Acute cholecystitis POST-OP: Acute gangrenous cholecystitis PROCEDURE: Laparoscopic Cholecystectomy SURGEON: MD Panfilo ANESTHESIA:Local with General with [place] ASST: VAISHNAVI Mojica IVF: 1.3 Liters of crystalloid EBL: min SPECIMEN: Gallbladder DRAIN: #10 YESY drain WOUND CLASS: 4 COMPLICATIONS: none TO PACU
[2018-03-12] MEDS: NS 0.9% 1000 ML* 1,000 ML IV SCH (19:43)
[2018-03-13] MEDS: ZOSYN 3.375 GM Q8H per EXTENDED INFUSION IVPB SCH ×6 (00:37→16:29)
[2018-03-13] MEDS: NS 0.9% 1000 ML* 1,000 ML IV SCH (07:40)
[2018-03-13] MEDS: Morphine VIAL* 4 MG/ML VIAL (1 ml vial) IV PRN (08:19)
[2018-03-13] MEDS: Mometasone/Formoter 200/5 MDI INH SCH ×2 (08:21→19:29)
[2018-03-13] MEDS: Tiotropium CAP.INH* CAP.INH/18 MCG (USE ORDER SET !) INH SCH (08:22)
[2018-03-13] MEDS: Lisinopril TAB* 10 MG PO SCH ×2 (08:45→08:51)
[2018-03-13] MEDS: amLODIPine TAB* 5 MG PO SCH ×2 (08:45→08:51)
[2018-03-13] MEDS: Metoprolol Tartrate TAB* 25 MG PO SCH ×2 (08:55→21:03)
[2018-03-13] MEDS: Folic Acid TAB* 1 MG PO SCH (08:55)
[2018-03-13] MEDS: Finasteride TAB* 5 MG PO SCH (08:55)
[2018-03-13] MEDS: oxyCODONE/Acetamin 5/325 MG* TAB PO PRN ×2 (08:55→16:29)
[2018-03-13] MEDS: Multivitamins/Minerals TAB PO SCH (08:55)
[2018-03-13] MEDS: Thiamine TAB* 100 MG TAB PO SCH (08:55)
--- NOTE | 2018-03-13 08:55 | PN ---
Progress Note - Progress Note Date of Service: 03/13/18 SOAP: Subjective: Complaining of incisional pain No N/V, Sitting up in bed this morning Objective: Temp Pulse Resp BP Pulse Ox 97.8 F 60 20 112/67 96 03/13/18 07:09 03/13/18 08:25 03/13/18 08:25 03/13/18 07:09 03/13/18 08:25 Intake & Output 03/11/18 03/12/18 03/13/18 03/14/18 06:59 06:59 06:59 06:59 Intake Total 1098 5767.6 Output Total 550 420 Balance 548 5347.6 Weight 175 lb 175 lb Intake: IV Fluids 998 5167.6 ABX - ZOSYN 175.6 LR 1500 NS (0.9%) 980 NS 100ML, Zosyn 3.375G 100 Oral 100 600 Output: YESY #1 45 Urine 550 375 Other: # Bowel Movements 0 0 PEX: Awake and alert Lungs with expiratory wheezing Abd is soft and slightly distended. Incisions are clean and dry. YESY with serosanguinous drainage. Few bowel sounds present Assessment: POD#1 s/p lap choly for acute calculous cholecystitis COPD Plan: Continue IV abx for another 24 hours YESY drain Advance diet Increase activity/pulmonary toilet Should be ready for d/c tomorrow-hopefully can d/c drain prior to d/c
--- NOTE | 2018-03-13 09:42 | OP ---
CC: Dr. Granados, [facility] * DATE OF OPERATION: 03/12/18 - ROOM #441 DATE OF : 46 SURGEON: Antonio Whittaker MD. POTATO CHIP COOKER MACHINE: VAISHNAVI Medina. ANESTHESIOLOGIST: Dr. Hernandez. ANESTHESIA: General with local. PRE-OP DIAGNOSIS: Acute calculous cholecystitis. POST-OP DIAGNOSIS: Acute calculous gangrenous cholecystitis. OPERATIVE PROCEDURE: Laparoscopic cholecystectomy. ESTIMATED BLOOD LOSS: Minimal. IV FLUIDS: 1.3 L of crystalloid. URINE OUTPUT: Not recorded. SPECIMENS: Gallbladder with retained gallstones. DRAINS: A #10 YESY drain in the right upper quadrant. WOUND CLASSIFICATION: 4. BRIEF HISTORY: Mr. Janes Phillips is a 67-year-old gentleman, who presented to the emergency room with 12 hours of severe right upper quadrant abdominal discomfort of a rather sudden onset. Initially, his ultrasound showed normal thickness gallbladder wall with no fluid and some gallstones in the neck of the gallbladder. He subsequently developed worsening right upper extremity abdominal discomfort and white blood cell count elevation as well as fever. On exam, he has tenderness in the right upper quadrant and at this time he is being taken to the operating room for cholecystectomy. DESCRIPTION OF PROCEDURE: Written informed consent was obtained, the abdomen was marked with indelible ink, and preoperative antibiotics were administered. The patient was taken to the operating room and placed in the supine position. Sequential compression devices and a warming blanket were applied. General anesthesia was administered and the abdomen was prepped and draped in the usual sterile fashion. Time-out verification was completed. Initially, a small vertical incision was made several fingerbreadths above the midline and the peritoneal cavity was entered under direct vision. A 12-mm blunt port was then inserted and the abdomen was insufflated to 15 mmHg. Under direct vision, an 11-mm epigastric port was placed and two 5-mm ports were placed in the right side of the abdominal wall. The gallbladder was identified. It was thickened, distended and not able to be grasped. There was a significant amount of omentum with acute/chronic adhesions to the gallbladder itself all consistent with acute calculous cholecystitis. An 18-gauge spinal needle was then used to decompress the gallbladder for about 50 to 60 cc of thin creamy bile intermixed with pus. Once we were able to grasp the gallbladder and elevate it up over the liver bed , using blunt dissection, I was able to sweep the adherent omentum off the gallbladder with some considerable difficulty. The gallbladder wall was then exposed and significant portions of it were gangrenous in appearance and I did enter the gallbladder inadvertently by grasping it in several positions and there was some purulent creamy bile that was suctioned. I removed two 1 cm stones from the gallbladder itself through one of these rents. There appeared to be no further gallstones left behind. With tedious combination of sharp and blunt dissection, I was able to sweep the adherent omentum down off the gallbladder to expose the infundibular area. There was a significant rind of tissue also that was dissected and I was able to take a significant portion of the inferior part of the gallbladder off the liver bed and I was able to identify the cystic duct where the gallbladder tapered down nicely and it appeared to be of normal caliber. I did not ever identify a cystic artery and I expect that this had been thrombosed and I divided it removing the omentum. Once I assured myself of this anatomy, the cystic duct was clipped and divided. The remainder of the gallbladder was then removed completely from the posterior liver bed without difficulty and placed in an Endo Catch bag and brought out through the umbilical incision. The right upper quadrant was then irrigated thoroughly with almost3 L of saline. There were no lost gallstones noted. A #10 YESY drain was placed in the right upper quadrant and brought out through the right lateral stab wound. This was sutured to the skin with 3-0 Prolene suture. All ports were removed under direct vision of the camera. There was no abdominal wall bleeding. The umbilical fascia was closed with interrupted 0 Vicryl suture. The skin at all 3 incisions was approximated with subcuticular 4- 0 Monocryl suture. Steri-Strips were applied. The patient tolerated the procedure well and was taken to the recovery room in stable condition. [id number]/[facility] #: [id number] LUIS ALFREDO
[2018-03-13] MEDS ORDERED: NS 0.9% 1000 ML* 1,000 ML IV SCH (09:50)
--- NOTE | 2018-03-13 10:13 | PN ---
Subjective Date of Service: 03/13/18 Interval History: HOSPITALIST PROGRESS NOTE Patient seen and examined at bedside. Care reviewed and d/w Jennifer Mancera RN. He feels "not too bad". Had some dyspnea and wheezing, but feels better today. Pain is controlled, tolerated liquid diet well. Family History: Unchanged from Admission Social History: Unchanged from Admission Past Medical History: Unchanged from Admission Objective Active Medications: Acetaminophen (Tylenol Tab*) 650 mg PO Q6H PRN PRN Reason: FEVER/PAIN Last Admin: 03/11/18 19:39 Dose: 650 mg Albuterol (Ventolin Hfa Inhaler*) 2 puff INH Q4HR PRN PRN Reason: SOB/WHEEZING Albuterol/Ipratropium (Duoneb (Albuterol 2.5 Mg/Ipratropium 0.5 Mg)) 1 neb INH Q6H PRN PRN Reason: SOB/WHEEZING Last Admin: 03/12/18 08:37 Dose: 1 neb Amlodipine Besylate (Norvasc Tab*) 2.5 mg PO DAILY [facility] Last Admin: 03/13/18 08:51 Dose: Not Given Finasteride (Proscar Tab*) 5 mg PO DAILY [facility] Last Admin: 03/13/18 08:55 Dose: 5 mg Folic Acid (Folvite Tab*) 1 mg PO DAILY [facility] Last Admin: 03/13/18 08:55 Dose: 1 mg Piperacillin Sod/Tazobactam (Sod 3.375 gm/ Sodium Chloride) 100 mls @ 25 mls/ hr IVPB 0000,0800,1600 MARYBETH Last Admin: 03/13/18 07:40 Dose: 25 mls/hr Sodium Chloride (Ns 0.9% 1000 Ml*) 1,000 mls @ 75 mls/hr IV PER RATE [facility] Stop: 03/13/18 15:00 Lisinopril (Prinivil Tab*) 40 mg PO DAILY [facility] Last Admin: 03/13/18 08:51 Dose: Not Given Metoprolol Tartrate (Lopressor Tab*) 25 mg PO BID [facility] Last Admin: 03/13/18 08:55 Dose: 25 mg Mometasone Furoate/Formoterol Fumar (Dulera 200/5 Mdi*) 2 puff INH BID MARYBETH PRN Reason: Protocol Last Admin: 03/13/18 08:21 Dose: 2 puff Morphine Sulfate (Morphine Vial*) 2 mg IV Q4H PRN PRN Reason: PAIN - MODERATE TO SEVERE Last Admin: 03/12/18 10:02 Dose: 2 mg Morphine Sulfate (Morphine Vial*) 4 mg IV Q2H PRN PRN Reason: PAIN Last Admin: 03/13/18 08:19 Dose: 4 mg Multivitamins/Minerals (Theragran/Minerals Tab*) 1 tab PO DAILY [facility] Last Admin: 03/13/18 08:55 Dose: 1 tab Ondansetron HCl (Zofran 40 Mg Vial*) 4 mg IV Q6H PRN PRN Reason: NAUSEA Last Admin: 03/11/18 14:53 Dose: 4 mg Oxycodone/Acetaminophen (Percocet 5/325 Tab*) 1 tab PO Q4H PRN PRN Reason: PAIN Last Admin: 03/13/18 08:55 Dose: 1 tab Pharmacy Consult (Zosyn Per Pharmacy*) 1 note FOLLOW UP .ZOSYN PER PHARMACY [facility] Thiamine HCl (Vitamin B-1 Tab*) 100 mg PO DAILY [facility] Last Admin: 03/13/18 08:55 Dose: 100 mg Tiotropium [place] (Spiriva Cap.Inh*) 1 cap INH QAM [facility] Last Admin: 03/13/18 08:22 Dose: 1 cap Vital Signs - 8 hr 03/13/18 03/13/18 03/13/18 07:09 07:47 08:19 Temperature 97.8 F Pulse Rate 53 Respiratory 14 16 20 Rate Blood Pressure 112/67 (mmHg) O2 Sat by Pulse 96 Oximetry Oxygen Devices in Use Now: Nasal Cannula Appearance: Pleasant gentleman sitting up in bed in [facility]. Eyes: No Scleral Icterus Ears/Nose/Mouth/Throat: Mucous Membranes Moist Neck: Trachea Midline Respiratory: Symmetrical Chest Expansion and Respiratory Effort, - - BS+ bilaterally diminished, no added sounds Cardiovascular: RRR - Normal S1 and S2 Abdominal: - - Soft, mild incisional tenderness, NG, NR, BS+ Extremities: No Edema Neurological: Alert and Oriented x 3, NL Muscle Strength and Tone Result Diagrams: 03/12/18 05:45 03/12/18 05:45 Assess/Plan/Problems-Billing Assessment: Mr. Phillips is a 67yo M with PMH of COPD, HTN, who presented to ED with c/o epigastric/RUQ pain, found to have acute cholecystitis. - Patient Problems (1) Sepsis Comment: - Presentation compatible with sepsis with fever and leukocytosis. - Source is acute cholecystitis. (2) Acute cholecystitis due to biliary calculus Comment: - US showed cholelithiasis and MRCP revealed no CBD stone but 0.7cm impacted stone at the GB neck with GB distention and pericholecystic fluid suggestive of acute cholecystitis. - S/p lap linsey 03/13/18. - Continue Zosyn. (3) COPD (chronic obstructive pulmonary disease) Comment: - Stable. - Continue inhaled bronchodilators and steroids. (4) HTN (hypertension) Current Visit: Yes Status: Acute Code(s): I10 - ESSENTIAL (PRIMARY) HYPERTENSION SNOMED Code(s): 08353610 Comment: - Controlled. - Continue Amlodipine, Metoprolol, and Lisinopril. (5) DVT prophylaxis Comment: - SQ heparin. (6) Full code status
[2018-03-13] MEDS: Heparin VIAL(*) 5000 UNITS/ML VIAL (FIVE THOUSAND) SUBCUT SCH ×2 (13:05→21:03)
[2018-03-13] MEDS: Acetaminophen TAB* 325 MG PO PRN (23:45)
[2018-03-14] MEDS: ZOSYN 3.375 GM Q8H per EXTENDED INFUSION IVPB SCH ×4 (00:34→08:22)
[2018-03-14] MEDS: Heparin VIAL(*) 5000 UNITS/ML VIAL (FIVE THOUSAND) SUBCUT SCH ×2 (05:52→13:50)
[2018-03-14] MEDS: Acetaminophen TAB* 325 MG PO PRN (06:24)
[2018-03-14] MEDS: amLODIPine TAB* 5 MG PO SCH (08:22)
[2018-03-14] MEDS: Multivitamins/Minerals TAB PO SCH (08:23)
[2018-03-14] MEDS: Metoprolol Tartrate TAB* 25 MG PO SCH (08:23)
[2018-03-14] MEDS: Folic Acid TAB* 1 MG PO SCH (08:23)
[2018-03-14] MEDS: Mometasone/Formoter 200/5 MDI INH SCH (08:24)
[2018-03-14] MEDS: Tiotropium CAP.INH* CAP.INH/18 MCG (USE ORDER SET !) INH SCH (08:24)
[2018-03-14] MEDS: Thiamine TAB* 100 MG TAB PO SCH (08:24)
[2018-03-14] MEDS: Finasteride TAB* 5 MG PO SCH (08:24)
[2018-03-14] MEDS: Lisinopril TAB* 10 MG PO SCH (08:24)
[2018-03-14] MEDS: oxyCODONE/Acetamin 5/325 MG* TAB PO PRN (08:52)
--- NOTE | 2018-03-14 09:47 | PN ---
Progress Note - Progress Note Date of Service: 03/14/18 Note: S: POD #2. Some pain. No N/V. Would like to advance diet. Passing flatus. No BM. Denies SOB. Ambulating some. Current Medications Acetaminophen (Tylenol Tab*) 650 mg PO Q6H PRN PRN Reason: FEVER/PAIN Last Admin: 03/14/18 06:24 Dose: 650 mg Albuterol (Ventolin Hfa Inhaler*) 2 puff INH Q4HR PRN PRN Reason: SOB/WHEEZING Albuterol/Ipratropium (Duoneb (Albuterol 2.5 Mg/Ipratropium 0.5 Mg)) 1 neb INH Q6H PRN PRN Reason: SOB/WHEEZING Last Admin: 03/12/18 08:37 Dose: 1 neb Amlodipine Besylate (Norvasc Tab*) 2.5 mg PO DAILY [facility]CLUDE 234 BEDS AT [facility] Last Admin: 03/14/18 08:22 Dose: 2.5 mg Finasteride (Proscar Tab*) 5 mg PO DAILY [facility]S INCLUDE 234 BEDS AT THE [facility] Last Admin: 03/14/18 08:24 Dose: 5 mg Folic Acid (Folvite Tab*) 1 mg PO DAILY [facility]S INCLUDE 234 BEDS AT THE [facility] Last Admin: 03/14/18 08:23 Dose: 1 mg Heparin Sodium (Porcine) (Heparin Vial(*)) 5,000 units SUBCUT Q8HR [facility]S INCLUDE 234 BEDS AT THE [facility] Last Admin: 03/14/18 05:52 Dose: 5,000 units Piperacillin Sod/Tazobactam (Sod 3.375 gm/ Sodium Chloride) 100 mls @ 25 mls/ hr IVPB 0000,0800,1600 [facility]S INCLUDE 234 BEDS AT THE [facility] Last Admin: 03/14/18 08:22 Dose: 25 mls/hr Lisinopril (Prinivil Tab*) 40 mg PO DAILY [facility] INCLUDE 234 BEDS AT THE [facility] Last Admin: 03/14/18 08:24 Dose: 40 mg Metoprolol Tartrate (Lopressor Tab*) 25 mg PO BID [facility] INCLUDE 234 BEDS AT THE [facility] Last Admin: 03/14/18 08:23 Dose: 25 mg Mometasone Furoate/Formoterol Fumar (Dulera 200/5 Mdi*) 2 puff INH BID [facility]CLUDE 234 BEDS AT THE [facility] PRN Reason: Protocol Last Admin: 03/14/18 08:24 Dose: 2 puff Morphine Sulfate (Morphine Vial*) 2 mg IV Q4H PRN PRN Reason: PAIN - MODERATE TO SEVERE Last Admin: 03/12/18 10:02 Dose: 2 mg Morphine Sulfate (Morphine Vial*) 4 mg IV Q2H PRN PRN Reason: PAIN Last Admin: 03/13/18 08:19 Dose: 4 mg Multivitamins/Minerals (Theragran/Minerals Tab*) 1 tab PO DAILY [facility]CLUDE 234 BEDS AT [facility] Last Admin: 03/14/18 08:23 Dose: 1 tab Ondansetron HCl (Zofran 40 Mg Vial*) 4 mg IV Q6H PRN PRN Reason: NAUSEA Last Admin: 03/11/18 14:53 Dose: 4 mg Oxycodone/Acetaminophen (Percocet 5/325 Tab*) 1 tab PO Q4H PRN PRN Reason: PAIN Last Admin: 03/14/18 08:52 Dose: 1 tab Pharmacy Consult (Zosyn Per Pharmacy*) 1 note FOLLOW UP .ZOSYN PER PHARMACY COUNTS INCLUDE 234 BEDS AT THE [facility] Thiamine HCl (Vitamin B-1 Tab*) 100 mg PO DAILY [facility] INCLUDE 234 BEDS AT THE [facility] Last Admin: 03/14/18 08:24 Dose: 100 mg Tiotropium [place] (Spiriva Cap.Inh*) 1 cap INH QAM [facility]S INCLUDE 234 BEDS AT THE [facility] Last Admin: 03/14/18 08:24 Dose: 1 cap O: Vital Signs - 8 hr 03/14/18 03/14/18 03/14/18 03:42 08:06 08:17 Temperature 98.3 F Pulse Rate 73 76 Respiratory 16 20 Rate Blood Pressure 146/72 (mmHg) O2 Sat by Pulse 93 93 Oximetry 03/14/18 03/14/18 08:29 08:52 Temperature Pulse Rate 87 Respiratory 22 20 Rate Blood Pressure (mmHg) O2 Sat by Pulse 93 Oximetry Intake and Output Last 24 Hours 03/12/18 03/13/18 03/14/18 03/15/18 06:59 06:59 06:59 06:59 Intake Total 1098 5767.6 3409 Output Total 012 071 0628 125 Balance 548 5347.6 2334 -125 Weight 175 lb Intake: IV Fluids 998 5167.6 869 ABX - ZOSYN 175.6 105 LR 1500 NS (0.9%) 980 764 NS 100ML, Zosyn 3.375G 100 IVPB 240 ABX - ZOSYN 240 Oral 387 153 9142 Output: YESY #1 45 185 25 Urine 550 375 890 100 Other: Estimated Void Small # Bowel Movements 0 0 0 Estimated Stool Amount Large # Voids 1 Gen: NAD Heart: reg Lungs: clear upper veliz; decreased BS at bases Abd: +BS; YESY; light clear serous; soft; mild incisional tenderness A: s/p lap linsey, doing well P: ok for d/c home from surgical standpoint; YESY drain removed; will advance diet
--- NOTE | 2018-03-14 14:28 | DS ---
CC: Dr. Granados; Dr. Whittaker DISCHARGE SUMMARY: DATE OF ADMISSION: 03/11/18 DATE OF DISCHARGE: 03/14/18 PRIMARY CARE PHYSICIAN: Dr. Granados. GENERAL SURGEON: Dr. Whittaker. DISCHARGE DIAGNOSES: 1. Acute cholecystitis, status post laparoscopic cholecystectomy. 2. Sepsis secondary to the above. SECONDARY DIAGNOSES: 1. Hypertension. 2. Chronic obstructive pulmonary disease. 3. B12 deficiency. 4. Carpal tunnel syndrome. 5. Hypertension. 6. Low back pain. MEDICATIONS: 1. Amlodipine 2.5 mg p.o. daily. 2. Symbicort 160/4.5 two puffs inhale b.i.d. 3. Gabapentin 300 mg p.o. b.i.d. 4. Hydrochlorothiazide 25 mg p.o. q.a.m. 5. Lisinopril 40 mg p.o. daily. 6. Metoprolol tartrate 25 mg p.o. b.i.d. 7. Simvastatin 20 mg p.o. at bedtime. 8. Spiriva 18 mcg inhale once a day. 9. Albuterol 1 puff inhale q.4 hours as needed for wheezing. 10. Finasteride 5 mg p.o. daily. NEW MEDICATIONS: 1. Oxycodone/acetaminophen 5/325 mg 1 tablet p.o. q.4 hours p.r.n. severe pain (this was prescribed by General Surgery). 2. Augmentin 875 mg p.o. b.i.d. for 5 more days (this was prescribed by Surgery.) Of note is that on admission the patient's list also has Estradiol 2 mg sublingual b.i.d. but the patient is not aware of taking this medication and this is also not listed on his last progress note from Dr. Granados's office. HOSPITAL COURSE: Mr. Phillips is a 67-year-old male with a past medical history as stated above who presented to the emergency room with complaints of epigastric and right upper quadrant pain. The night prior to admission, the patient ate hamburger and hot dogs for dinner and he woke up at 1 in the morning with pain associated with nausea and vomiting. For more details about his presentation, I refer you to his history and physical. In the emergency room, the patient had an abdominal ultrasound that showed cholelithiasis with mild dilatation of the common duct. The patient had an MRCP that was negative for biliary dilatation or presence of a common bile duct stone but it showed a 0.7 cm impacted appearing stone at the gallbladder neck with gallbladder distention and pericholecystic fluid suspicious for acute cholecystitis. The patient was also found to be febrile with a temperature of 101.3 and he developed leukocytosis of 20.9000. The patient was seen in consultation by General Surgery. His impression was the patient had acute calculous cholecystitis and he felt that laparoscopic cholecystectomy was indicated. The patient was optimized for surgery and he underwent the procedure on by Dr. Whittaker. At that time, the postop diagnosis was acute calculous gangrenous cholecystitis. The patient had a YESY drain placed and this was removed prior to discharge. The patient had significant improvement of his symptoms. He was able to tolerate a solid diet and general surgery recommendation at this point is to complete 5 more days of antibiotics. The patient has history of COPD and this was felt to be stable during the hospital stay but he did develop some hypoxia with exertion, so the plan is for him to have supplemental oxygen at home while ambulating 4 L/min. The patient is medically stable to be discharged home today to follow [facility] with [facility] on 03/21/18 at 1:30 p.m. PHYSICAL EXAMINATION: Vital Signs: Temperature 98.3, heart rate 65, respiratory rate 20, oxygen saturation is 92% on 2 L. CVS: Normal S1, S2. Regular rate and rhythm. Chest: Breath sounds bilaterally diminished. There are no added sounds. Abdomen is soft with incisional tenderness but no guarding , no rebound. Bowel sounds present. Extremities: No edema. Neuro: He is alert and awake and oriented x3, able to move all 4 extremities. DIET: Low fat diet. ACTIVITIES: As tolerated. DISPOSITION: Home. STATUS WHILE IN THE HOSPITAL: Inpatient. Please keep in mind this is a summarized version of this patient's hospital stay. If you need more information, please feel free to call me at [phone] or please obtain full medical records. TIME SPENT: Approximately 45 minutes were spent to complete this discharge. [id number]/[facility] #: [id number] MTDJose
[2018-03-14 16:19] VITALS: BP 158/76
== END 2018-03-14 16:37 | disposition home or self-care (01) | DRG 710 ==
LOC: ED 04:03 → MEDTELE 09:50 → OBSVTOIN 03-13 07:01
PROVIDERS: ADMIT Internal Medicine; ATTEND Internal Medicine
PROC: 0FT44ZZ Resection of Gallbladder, Percutaneous Endoscopic Approach (ICD-10-PCS; principal; 2018-03-13)
DX: A41.9 Sepsis, unspecified organism (principal); K80.00 Calculus of gallbladder with acute cholecystitis without obstruction; I10 Essential (primary) hypertension; J44.9 Chronic obstructive pulmonary disease, unspecified; M54.5 Low back pain; E53.8 Deficiency of other specified B group vitamins; D64.9 Anemia, unspecified; F10.10 Alcohol abuse, uncomplicated; R00.1 Bradycardia, unspecified; Y90.9 Presence of alcohol in blood, level not specified; N40.0 Benign prostatic hyperplasia without lower urinary tract symptoms; Z72.89 Other problems related to lifestyle; Z87.891 Personal history of nicotine dependence; Z79.52 Long term (current) use of systemic steroids; Z99.81 Dependence on supplemental oxygen; R09.02 Hypoxemia
CPT/HCPCS: 36415; 71045; 74181; 76376; 76705; 80053; 80061; 82150; 83690; 83735; 84484; 85025; 85610; 85730; 87040; 93005; 94640; 99284; A9270-GY; G0378; J1644; J2250; J2270; J2543; J2704; J2765; J3010; J3475; J8540

== ENCOUNTER 2018-10-28 06:54 | Day surgery (SDC) | payer BC, MEDICARE ==
[~2018-10-28 06:54] MED LIST changes: +Acetaminophen TAB* 325 MG PO ONE; -Acetaminophen TAB* 325 MG PO PRN; -Buffered Lidocaine 0.9% SYRIN* 5 ML/SYR SYRINGE INTRADERM ONE; -Buffered Lidocaine 0.9% SYRIN* 5 ML/SYR SYRINGE ONE; +Buffered Lidocaine 1% SYRIN* 1 ML/SYRINGE INTRADERM ONE; -Bupivacaine 0.5%* 50 ML VIAL ONE; +Dexamethasone IV* 4 MG/ML 1 ML (4 MG) IV SLOW PU ONE; -Dexamethasone IV* 4 MG/ML 1 ML (4 MG) ONE; +Dexamethasone TAB* 4 MG PO ONE; -EPHEDrine (Pressors)* 50 MG/ML VIAL ONE; +Famotidine IV* 10 MG/ML 2 ML (20 mg) IV ONE; -Famotidine IV* 10 MG/ML 2 ML (20 mg) ONE; +Gabapentin CAP(*) 300 MG PO ONE; -Ketorolac INJ* 30 MG/ML 1 ML VIAL ONE; +Lactated Ringers 1000 ML Bag* 1,000 ML IV SCH; -Levalbuterol 0.63MG/3ML NEB* UNIT OF USE INH PRN; -Lidocain 1% EPI 1:100,000 * 30 ML MDV ONE; -Lidocaine 2% PF * 5 ML VIAL ONE; -Midazolam* 1 MG/ML 2 ML VIAL (2 MG) ONE; +Morphine VIAL* 4 MG/ML VIAL (1 ml vial) IV PRN; -Ondansetron INJ* 2 MG/ML VIAL IV PRN; +Ondansetron INJ* 2 MG/ML VIAL ONE; -Propofol* 10 MG/ML 20 ML BTL IV PUSH ONE; -ceFAZolin 2 GM PREMIX (*) 2 GM/50 ML BAG IVPB ONE; -fentaNYL* 50 MCG/ML 2 ML VIAL (100 MCG VIAL) ONE; +oxyCODONE/Acetamin 5/325 MG* TAB PO PRN
[2018-10-28] MEDS ORDERED: Famotidine IV* 10 MG/ML 2 ML (20 mg) ONE (07:35)
[2018-10-28] MEDS ORDERED: Dexamethasone IV* 4 MG/ML 1 ML (4 MG) ONE (07:35)
[2018-10-28] MEDS ORDERED: ceFAZolin 2 GM PREMIX in ORs 2 GM/50 ML BAG IVPB ONE (07:37)
[2018-10-28] MEDS ORDERED: Midazolam* 1 MG/ML 2 ML VIAL (2 MG) ONE (07:46)
[2018-10-28] MEDS ORDERED: Rocuronium* 10 MG/ML VIAL ONE (07:46)
[2018-10-28] MEDS ORDERED: Propofol* 10 MG/ML 20 ML BTL ONE (07:47)
[2018-10-28] MEDS ORDERED: KETAMINE HCL* 50 MG/ML 10 ML VIAL ONE (07:49)
[2018-10-28] MEDS ORDERED: Lidocaine 1% INJ* 10 MG/ML 30 ML SDV ONE (07:54)
[2018-10-28] MEDS ORDERED: Bupivacaine 0.5% W/EPI SDV* 30 ML VIAL ONE (07:54)
[2018-10-28] MEDS ORDERED: Phenylephrine INJ* 10 MG/ML 1 ML VIAL (10 MG) ONE (08:41)
[2018-10-28] MEDS ORDERED: Lidocaine 2% PF * 5 ML VIAL ONE (08:45)
[2018-10-28] MEDS ORDERED: Naloxone* 0.4 MG/ML 1 ML VIAL IV PRN (09:41)
[2018-10-28] MEDS ORDERED: Ketorolac INJ* 30 MG/ML 1 ML VIAL ONE (10:08)
[2018-10-28] MEDS ORDERED: Ondansetron INJ* 2 MG/ML VIAL ONE (10:08)
[2018-10-28] MEDS ORDERED: fentaNYL* 50 MCG/ML 2 ML VIAL (100 MCG VIAL) ONE ×2 (10:08→11:20)
[2018-10-28] MEDS ORDERED: Sugammadex * 200 MG/2 ML VIAL IV PUSH ONE (10:45)
[2018-10-28] MEDS: fentaNYL* 50 MCG/ML 2 ML VIAL (100 MCG VIAL) IV PRN ×2 (11:23→13:01)
[2018-10-28] MEDS ORDERED: oxyCODONE/Acetamin 5/325 MG* TAB PO ONE (13:25)
[2018-10-28] MEDS ORDERED: oxyCODONE/Acetamin 5/325 MG* TAB ONE (13:38)
[2018-10-28 14:46] VITALS: BP 139/86
--- NOTE | 2018-10-28 22:58 | OP ---
DATE OF OPERATION: 10/28/18 - [facility] DATE OF : 46 SURGEON: Antonio Whittaker MD GOLF COURSE DESIGNER: Suzie Taylor NP ANESTHESIOLOGIST: Dr. Hawk. ANESTHESIA: General with local. PRE-OP DIAGNOSIS: Large left inguinal scrotal hernia. POST-OP DIAGNOSIS: Large left inguinal scrotal indirect hernia. OPERATIVE PROCEDURE: Open repair with mesh of a left inguinal hernia. ESTIMATED BLOOD LOSS: Minimal. IV FLUIDS: 1 L of crystalloid. SPECIMENS: None. WOUND CLASSIFICATION: One. DRAINS: None. COMPLICATIONS: None. DESCRIPTION OF PROCEDURE: Written informed consent was obtained, the left groin was marked with indelible ink, and preoperative antibiotics were administered. The patient was taken to the operating room, placed in the supine position. Sequential compression devices were placed as well as a warming blanket. General anesthesia was administered and then a Vasquez catheter was inserted. The left lower abdomen, groin, scrotum, and genitals were prepped and draped in the usual sterile fashion with Betadine. The inguinal hernia was reduced on the table after induction of general anesthesia prior to prepping without difficulty. Time-out verification was completed. The 0.25% Marcaine was infiltrated in the left groin and an oblique incision was made several fingerbreadths above the inguinal crease. This was carried down to the external oblique aponeurosis and this was opened at the direction of its fibers. The spermatic cord and contents and what appeared to be a rather large hernia sac was encircled with the pubic tubercle with a 0.25-inch [place] drain. We then identified a very large peritoneal sac that extended down into the scrotum and this was reduced back up into the field. The spermatic cord contents including the vas deferens were identified and protected from injury throughout. I did divide the ilioinguinal nerve as this was involved with some scar tissue. With care, we the large redundant peritoneal sac up into the internal ring where we identified this as an internal hernia. There were several small runs made in the peritoneum and these were closed with a running 3-0 Vicryl suture. The direct space was somewhat attenuated as well, but I was able to identify the epigastric vessels and we reduced the hernia in through the internal ring. There was also a small cord lipoma which was reduced as well. I then placed the ProGrip Covidien Precut mesh and sutured it to the pubic tubercle immediately and placed it to cover the direct and indirect space and reconstruct the internal ring in the usual fashion. It covered nicely with no tension or folding. The mesh inferiorly was secured to the inguinal ligament with a running 0- Vicryl suture. I used several interrupted 0-Vicryl sutures to adhere the mesh to the conjoint tendon and the musculature laterally. The internal ring was reconstructed nicely. The mesh sat well and hemostasis was assured. Additional Marcaine was infiltrated. The external oblique aponeurosis was closed with a running 3-0 Vicryl suture. Yeny's fascia was closed with a running 3-0 Vicryl suture. The skin was approximated with subcuticular 4-0 Vicryl suture. Steri-Strips and sterile dressings were applied. At the completion of the case, both testicles were in their usual position in the scrotum and a scrotal support device was placed. The patient tolerated the procedure well, was taken to the recovery room in stable condition. [id number]/[facility] #: [id number] LUIS ALFREDO
== END 2018-10-28 14:30 | disposition home or self-care (01) ==
LOC: OR 06:54
PROVIDERS: ATTEND Surgery
DX: K40.90 Unilateral inguinal hernia, without obstruction or gangrene, not specified as recurrent (principal); Z87.891 Personal history of nicotine dependence; I10 Essential (primary) hypertension; J44.9 Chronic obstructive pulmonary disease, unspecified
CPT/HCPCS: A9270-GY; J0690; J1100; J1885; J2250; J2405; J2704; J3010